=== PATIENT | female | born 1985 | race Caucasian/White ===

== ENCOUNTER 2021-12-07 02:09 | Emergency (ER) | payer BC, SELFPAY ==
--- NOTE | 2021-12-07 02:20 | W.EDPROG ---
Date of service: 12/07/21 Time of Service: 01:20 Medical Decision Making This is a 36-year-old G1, P0 who is currently 34 weeks who is visiting from out of town who presented for her water breaking and contractions. The patient was mistakenly put on the ER board rather than triage directly to the obstetrics area. I did contact obstetrics and they specifically requested the patient immediately be brought up there and that no vaginal exam or check be performed down here. Patient was subsequently immediately brought to the OB area for further management. The patient was placed on the ER tracker in an error. Discharge Plan Discharge Details ED Provider: Provider,Luisa
== END 2021-12-07 12:05 | disposition short-term general hospital (02) ==
LOC: ER 12:04
DX: Z53.29 Procedure and treatment not carried out because of patient's decision for other reasons (principal)

== ENCOUNTER 2021-12-07 02:25 | Observation (INO) | payer BC, SELFPAY ==
[2021-12-07 03:17] LABS: Bilirubin Negative (Negative); Blood Moderate (Negative); Clarity Clear (Clear); Glucose Negative (Negative); Ketones Negative (Negative); Leukocyte Esterase Negative (Negative); Nitrite Negative (Negative); Specific Gravity 1.025 (1.005-1.025); Urobilinogen 0.2 EU/dL (Up TO 0.2)
[2021-12-07 03:20] LABS: ROM Plus Positive
--- NOTE | 2021-12-07 03:24 | HPE_ITS ---
Date of service: 12/07/21 Time of Service: 03:24 Assessment and Plan Assessment and plan (1) PROM (premature rupture of membranes): Start date: 12/07/21 Start time: 00:00 Status: Acute (2) with 34 completed weeks gestation: Status: Acute Assessment and plan: Transfer to tertiary care. No bed avaialability at [facility]. Arrange transfer to [facility]. This is nearest available NICU and her home facility OB-HPI Labor/Delivery History of Present Illness Reason for Visit: r/o pre term labor Chief Complaint: Suspected Rupture of Membranes (at 0000) , Associated Signs and Symptoms of Suspected ROM: Loss of clear fluid, ROM plus positive. U/S vertex ; Suspected Labor. Comments: Patient is a 36-year-old 1 para 0 at 34 weeks and 3 days who had care with an obstetric group in [place], at [facility]. She was visiting the area and at approximately midnight, will have some leaking of f luid. She placed a pad and change that was continued leaking fluid and some uterine crampiness. She presented to the hospital here today for evaluation. Per patient's report, her to this point has been uncomplicated. She denies hypertension, gestational diabetes, difficulty with with her to this point. She has not yet had a repeat strep culture as she is shy of 36 weeks. Her patient was to be delivered with her. In [place]. She denies any recent trauma, or changes in her daily activity, fact that she is visiting from out of town. History of Present Narrative: Uncomplicated primigravida at 34 weeks 3 days with loss of fluid and irregular uterine contraction. Review of Systems All systems reviewed & are unremarkable except as noted in HPI and below Constitutional Constitutional: Reports as per HPI, Denies body ache(s), Denies chills and Denies weakness Eyes Eyes: Reports as per HPI and Reports system reviewed and no additional compl aints, except as documented ENT Ears, Nose, Mouth, and Throat: Reports system reviewed and no additional complaints, except as documented Cardiovascular Cardiovascular: Reports as per HPI, Denies chest pain, Denies diaphoresis and Denies dyspnea Respiratory Respiratory: Reports system reviewed and no additional complaints, except as documented, Denies cough, Denies dyspnea and Reports other (No recent COVID exposures that she is aware. Not vaccinated) Gastrointestinal Gastrointestinal: Reports system reviewed and no additional complaints, except as documented Genitourinary Genitourinary: Reports system reviewed and no additional complaints, except as documented Musculoskeletal Musculoskeletal: Reports system reviewed and no additional complaints, except as documented Neurologic Neurologic: Denies weakness Psychiatric Psychiatric: Reports system reviewed and no additional complaints, except as documented PFSH All Active Problems PROM (premature rupture of membranes) (Acute) with 34 completed weeks gestation (Acute) Social History (Updated 12/07/21 @ 03:58 by Genevieve Brooke DO) Smoking/Tobacco Use Status: Never Smoking risk assessment performed?: Yes Alcohol Intake: never History History 1 Para 0 Hx # Term Pregnancies 0 Multiple births Hx # Pregnancies Ectopic pregnancies 0 AB induced 0 Hx Number of Living Children AB spontaneous Past Pregnancies Del. Date GA/Weeks # Outcome Route Wgt Sex Labor Lgth Anesthes ia Location Prov Complic Unknown 34 No Meds Allergies and Home Medications Allergies Allergy/AdvReac Type Severity Reaction Status Date / Time No Known Allergies Allergy Verified 12/07/21 03:56 Allergy/Medication Comments:: PNV only Exam Physical Exam Vital Signs Reviewed: Yes Narrative: Reactive category 1 nonstress test, irregular contraction Constitutional Constitutional: no acute distress Detailed Labor and Delivery Exam Dilation: 0 Pineda Score: Cervical Points Exam 0 1 2 3 Dilation Closed 1-2cm 3-4 cm 5-6cm Effacement 0-30% 40-50% 60-70% 80% Consistency Firm Medium Soft Station -3 -2 -1,0 +1,+2 Position Posterior Mid Anterior Fetus A Heart Rate Baseline: 140 Monitor Accelerations: 15 X 15 Monitor Decelerations: None Variability: Moderate (6-25 BPM) Presentation: Vertex Categories: Category I Est. Weight: 4 lb 8 oz Date of Membrane Rupture: 12/07/21 HEENT Exam HEENT Exam: Normal Detailed HEENT Exam Eye: Present EOMI Detailed Neck Exam Neck exam general surgery: Present supple and full ROM Detailed Respiratory Exam Respiratory: Absent rales, rhonchi or wheezes Detail Cardiovascular Exam Cardiovascular: Present RRR, S1 and S2 Abdominal Exam Abdominal Exam: Normal Extremities Exam Extremities Exam: Normal Skin Exam Skin Exam: Normal Detailed Neurological Exam Neurological: Present alert, oriented X3 and CN II-XII intact; Absent sensory deficit or motor deficit Psychiatric Exam Psychiatric Exam: Normal Results Results Group Beta Strep: pending Abnormal Lab Findings: Abnormal Labs 12/07/21 02:50 Urine Blood Moderate H Additional Findings Results: ROM plus positive. GBS collected Risk Assessment Risk for Shoulder Dystocia Historical/Initial OB: NEGATIVE FOR: Pelvic Abnormality, Pre- BMI>30, Previous Shoulder Dystocia or Previous Macrosomia 40 Weeks: NEGATIVE FOR: EFW> 4500 gms, Maternal Weight Gain >40lb or Post Dates Delivery Plan @ 36wks: Risk for Pre-Eclampsia Daily Dose ASA Indicated: No Risk for Post- Hemorrhage Initial: NEGATIVE FOR: Multiple Gestation, Previous PPH, Known Clotting Deficiency, Grand Multiparity or Anticoagulation At Risk?: No Date/Initials: VESTA Risks Reviewed Risks Reviewed Upon Admission: Yes
[2021-12-07 03:38] LABS: Bacteria Rare HPF (Negative); C & S Indicated? No; Crystals Negative HPF (Negative); Epithelial Cells Moderate HPF (Negative); Mucus Moderate (Negative); WBC 0-2 HPF (0-5)
[2021-12-07 03:43] LABS: Source Nasopharynx
--- NOTE | 2021-12-07 04:27 | PGE_ITS ---
Date of Service Date of service: 12/07/21 Time of Service: 04:27 Assessment and Plan Assessment and plan (1) PROM (premature rupture of membranes): Status: Acute Assessment and plan: Patient will be transferred to her primary facility which is [facility] in [facility]. Betamethasone and IV antibiotics for home. She will travel risk group B strep culture. All questions were answered. (2) with 34 completed weeks gestation: Status: Acute Subjective Subjective Interval history since last seen: Patient seen, complex discussed. Transfer discussed. Patient having contractions, approximately every 3 to 4 minutes. Not distinctly uncomfortable. [facility] would be the closest facility, no obstetric or beds available. I did contact her primary hospital in [facility] for transfer. Assistant Track Coach is here. We will begin betamethasone 12 mg IM x1 now, Zithromax 500 mg X1, ampicillin 2 g IV x1. Risks of transfer discussed with the patient. Exam Narrative Exam Narrative: No changes in physical examination. Cervix is 75%, posterior, 1 cm, vertex is at station. She has a continued category 1 strip that is reactive. Objective Laboratory Results - last 24 hr 12/07/21 12/07/21 12/07/21 02:50 02:50 03:23 Urine Color Yellow Urine Clarity Clear Urine pH 7.0 Ur Specific [place] 1.025 Urine Protein Negative Urine Ketones Negative Urine Blood Moderate H Urine Nitrite Negative Urine Bilirubin Negative Urine Urobilinogen 0.2 Ur Leukocyte Esterase Negative Urine RBC 5-10 H Urine WBC 0-2 Ur Epithelial Cells Moderate Urine Crystals Negative Urine Bacteria Rare Urine Mucus Moderate Ur Culture Indicated? No Urine Glucose Negative Membranes Rupture Positive COVID-19 Source Nasopharynx
[2021-12-07 04:34] LABS: COVID-19 PCR Negative (Negative)
[2021-12-07] MEDS: Betamet Acet/Betamet Na Ph Inj. 30 MG/5 ML 12 MG IM (04:57)
[2021-12-07] MEDS: AZITHROMYCIN 500 MG in Normal Saline 250 ML 250 MG IVPB (05:10)
== END 2021-12-07 05:20 | disposition short-term general hospital (02) ==
PROVIDERS: Admitting Provider Obstetrics & Gynecology; Visit Provider Obstetrics & Gynecology
DX: O42.913 Preterm premature rupture of membranes, unspecified as to length of time between rupture and onset of labor, third trimester (principal); Z20.822 Contact with and (suspected) exposure to COVID-19; Z3A.34 34 weeks gestation of pregnancy
CPT/HCPCS: 84112; 85027; 86900; 86901; 87635; 81003; 81015; J0456; J0702